=== PATIENT | male | born 1960 | race Two or more races ===

== ENCOUNTER 2025-05-27 06:09 | Emergency (ER) | payer OTHER ==
[~2025-05-27] VITALS: Ht 167.6 cm; Wt 95.6 kg
[2025-05-27 06:21] VITALS: O2SAT 99
[2025-05-27 07:06] LABS: BASOPHILS % 1.4 % (0.0-2.0); EOSINOPHILS % 3.2 % (0.0-5.0); HEMATOCRIT. 48.6 % (42.0-52.0); HEMOGLOBIN. 16.2 g/dL (14.0-18.0); LYMPHOCYTES % 30.5 % (20.0-50.0); MEAN PLATELET VOLUME 7.8 fl (7.4-10.4); MONOCYTES % 9.9 % (2.0-8.0); NEUTROPHILS % 55.0 % (40.0-76.0); PLATELET 236 x1000/uL (130-400); RED BLOOD CELL COUNT 5.91 mill/uL (4.7-6.1); RED CELL DISTRIBUTION WIDTH 14.5 % (11.6-14.6)
[2025-05-27 07:32] LABS: CREATININE 0.9 mg/dL (0.6-1.3); UREA NITROGEN BLOOD 8 mg/dL (9-23)
[2025-05-27 08:27] LABS: CLARITY URINE CLEAR (CLEAR); COLOR URINE YELLOW (YELLOW); GLUCOSE URINE NEGATIVE (NEGATIVE); KETONES URINE NEGATIVE (NEGATIVE); LEUKOCYTE ESTERASE URINE NEGATIVE (NEGATIVE); NITRITE URINE NEGATIVE (NEGATIVE); OCCULT BLOOD URINE 1+ (NEGATIVE); PH URINE 6.5 (4.5-8.0); PROTEIN URINE NEGATIVE (NEGATIVE); SPECIFIC GRAVITY URINE 1.017 (1.005-1.030); UROBILINOGEN URINE 0.2 E.U./dL (0.2-1.0)
[2025-05-27 08:54] LABS: TROPONIN I HIGH SENSITIVITY < 4 ng/L (3.0-53)
[2025-05-27 08:55] LABS: BACTERIA URINE FEW; RBC URINE NONE SEEN /hpf (0-2); SQUAMOUS EPITHELIAL CELL URINE NONE SEEN /lpf (RARE/1+); WBC URINE 0-2 /hpf (0-2); YEAST URINE NONE SEEN
[2025-05-27 08:55] LABS: ASPARTATE AMINOTRANSFERASE 17 IU/L (<34); BILIRUBIN DIRECT 0.2 mg/dL (<=3.0); BILIRUBIN TOTAL 0.7 mg/dL (0.1-1.0)
[2025-05-27 08:56] LABS: PROTEIN TOTAL 7.5 g/dL (6.0-8.3)
[2025-05-27] MEDS ORDERED: PROT40 MT (10:17)
[2025-05-27 10:36] VITALS: BP 170/92; PULSE 68; RESP 15; TEMP 36.6; O2SAT 97
[2025-05-27] MEDS: IBUPROFEN 800MG TABLET PO ONE (10:36)
[2025-05-27] MEDS: FAMOTIDINE 20MG TABLET PO ONE (10:36)
== END 2025-05-27 10:38 | disposition home or self-care (01) ==
LOC: ER 06:09
DX: R10.11 Right upper quadrant pain (principal); E78.00 Pure hypercholesterolemia, unspecified; I10 Essential (primary) hypertension; Z79.899 Other long term (current) drug therapy
CPT/HCPCS: 36415; 74176; 76770; 80048; 80076; 81003; 84484; 85025; 93005; 99284